=== PATIENT | male | born 1930 | race Caucasian/White ===

== ENCOUNTER 2018-10-12 15:44 | Emergency (ER) | payer MEDICARE, OTHER ==
[~2018-10-12] VITALS: Ht 167.6 cm; Wt 99.8 kg
[~2018-10-12 15:44] MED LIST: HYDACE5325 PO; LISI5 PO; OMEP20ER PO; RXHYD5325 PO; SIMV40 PO; TRAM50 PO; WARF5 PO
[2018-10-12] MEDS ORDERED: FURO40 PO (16:42)
[2018-10-12] MEDS ORDERED: FINA5 PO (16:43)
[2018-10-12] MEDS ORDERED: POTA10T PO (16:43)
[2018-10-12] MEDS ORDERED: WARF2.5 PO (17:37)
[2018-10-12] MEDS ORDERED: CHOL10002 PO (17:39)
[2018-10-12] MEDS ORDERED: THERA1 EACH PO (17:39)
[2018-10-12] MEDS ORDERED: Norco 10-325 T1 EACH PO (19:18)
== END 2018-10-12 19:58 | disposition home or self-care (01) ==
LOC: ER 15:44
DX: M79.662 Pain in left lower leg (principal); Z89.512 Acquired absence of left leg below knee; Z79.01 Long term (current) use of anticoagulants; Z79.899 Other long term (current) drug therapy; I10 Essential (primary) hypertension; I48.91 Unspecified atrial fibrillation; K21.9 Gastro-esophageal reflux disease without esophagitis; Z87.891 Personal history of nicotine dependence
CPT/HCPCS: 73562-LT; 96374; 99283-25; J1170